=== PATIENT | male | born 1935 | race Two or more races ===

== ENCOUNTER 2017-09-17 11:57 | Outpatient (CLI) | payer OTHER ==
[~2017-09-17 11:57] MED LIST: BREO ELLIPTA I1 EACH; COUMADIN4 MG; DOXYCYCLINE HY100 MG PO; LASIX20 MG; LEVAQUIN-D5W5 MG/M2 IV; LIPITOR40 MG; MOBIC7.5 M1; OSTEO BI-FLEX1 EAC1; PERCOCET 5/321 UDTAB PO; SINGULAIR 10MG10 MG; TOPROL XL100 M1; VANCOCIN HCL 5 MG/ML REDILUIDO IV; VITAMIN D10000 UNIT; ZYLOPRIM100 M1
== END 2017-09-17 12:02 | disposition home or self-care (01) ==
LOC: RAD 11:57
DX: M54.5 Low back pain (principal)

== ENCOUNTER 2017-09-17 12:09 | Outpatient (CLI) | payer OTHER | END 2017-09-17 12:25 | disposition home or self-care (01) | LOC: MRI 12:09 | DX: M75.101 Unspecified rotator cuff tear or rupture of right shoulder, not specified as traumatic (principal) | CPT/HCPCS: 73221 ==

== ENCOUNTER → 2018-01-08 | Outpatient (CLI) | payer OTHER | END | disposition home or self-care (01) | LOC: RAD 16:15 | DX: M25.561 Pain in right knee (principal) ==

== ENCOUNTER 2018-04-30 09:41 | Outpatient (CLI) | payer OTHER | END 2018-04-30 09:46 | disposition home or self-care (01) | LOC: RAD 09:41 | DX: H25.11 Age-related nuclear cataract, right eye (principal) ==

== ENCOUNTER 2018-09-08 10:50 | Outpatient (CLI) | payer OTHER | END 2018-09-08 10:54 | disposition home or self-care (01) | LOC: RAD 10:50 | DX: R07.89 Other chest pain (principal) ==

== ENCOUNTER 2018-09-12 13:48 | Inpatient (IN) | payer OTHER ==
[~2018-09-12] VITALS: Ht 157.5 cm; Wt 66.7 kg
== END 2018-09-14 08:44 | disposition expired | DRG 536 ==
LOC: ER 13:48 → SURH 20:58
PROVIDERS: ADMIT Internal Medicine
PROC: B246ZZZ Ultrasonography of Right and Left Heart (ICD-10-PCS; principal; 2018-09-12)
PROC: BW24ZZZ Computerized Tomography (CT Scan) of Chest and Abdomen (ICD-10-PCS; 2018-09-13)
PROC: 4A12X4Z Monitoring of Cardiac Electrical Activity, External Approach (ICD-10-PCS; 2018-09-13)
DX: S72.092A Other fracture of head and neck of left femur, initial encounter for closed fracture (principal); I27.0 Primary pulmonary hypertension; L97.418 Non-pressure chronic ulcer of right heel and midfoot with other specified severity; N17.8 Other acute kidney failure; W18.39XA Other fall on same level, initial encounter; B95.62 Methicillin resistant Staphylococcus aureus infection as the cause of diseases classified elsewhere; I46.8 Cardiac arrest due to other underlying condition; D72.828 Other elevated white blood cell count; I25.10 Atherosclerotic heart disease of native coronary artery without angina pectoris; I10 Essential (primary) hypertension; I73.89 Other specified peripheral vascular diseases; I87.2 Venous insufficiency (chronic) (peripheral); I48.0 Paroxysmal atrial fibrillation; N40.0 Benign prostatic hyperplasia without lower urinary tract symptoms; G47.33 Obstructive sleep apnea (adult) (pediatric); M06.89 Other specified rheumatoid arthritis, multiple sites; M10.9 Gout, unspecified; I35.0 Nonrheumatic aortic (valve) stenosis; I35.1 Nonrheumatic aortic (valve) insufficiency; I34.0 Nonrheumatic mitral (valve) insufficiency; Z95.1 Presence of aortocoronary bypass graft; Z79.01 Long term (current) use of anticoagulants